=== PATIENT | female | born 1980 | race Caucasian/White ===

== ENCOUNTER → 2019-12-02 | Outpatient (CLI) | payer OTHER ==
--- NOTE | 2019-12-05 09:06 | RAD ---
DATE: 12/02/2019 EXAM: MAMMO BRIDGER SCREENING BILATERAL HISTORY: Routine screening COMPARISON: No prior exams are available. This exam is considered as a baseline exam. This study was interpreted with the benefit of Computerized Aided Detection (CAD). Breast Density: HETERO The breast parenchyma is heterogenously dense, which could reduce sensitivity of mammography. Breast parenchyma level C. FINDINGS: Right upper outer breast calcification cluster is noted 5 cm from the nipple. There are 2 asymmetries identified involving the right upper-outer breast approximately 5.8 cm from the nipple. At the left outer exaggerate the lateral view, there is a small asymmetry at the far posterior left breast which may represent a lymph node. IMPRESSION: Indeterminate findings bilaterally. BI-RADS CATEGORY: 0 INCOMPLETE: NEEDS ADDITIONAL IMAGING EVALUATION AND/OR PRIOR MAMMOGRAMS FOR COMPARISON. RECOMMENDED FOLLOW-UP: ADD ADDITIONAL IMAGING. Ultrasound imaging of the right outer breast asymmetry is is recommended. Spot magnification imaging of the right upper-outer breast calcifications is recommended in the CC and mediolateral projections. Medial lateral view of the right breast recommended. Ultrasound imaging of the left far posterior lateral aspect is recommended. Spot compression imaging of the far outer left exaggerated craniocaudal lateral asymmetry which probably represents a lymph node may be needed. PQRS compliance statement: Patient information was entered into a reminder system with a target due date for the next mammogram. Mammography is a sensitive method for finding small breast cancers, but it does not detect them all and is not a substitute for careful clinical examination. A negative mammogram does not negate a clinically suspicious finding and should not result in delay in biopsying a clinically suspicious abnormality. "Our facility is accredited by the [employer] Mammography [employer]."
== END | disposition home or self-care (01) ==
LOC: MAMMO 08:02
PROVIDERS: ATTEND Obstetrics & Gynecology
DX: Z12.31 Encounter for screening mammogram for malignant neoplasm of breast (principal); N64.89 Other specified disorders of breast
CPT/HCPCS: 77063; 77067

== ENCOUNTER → 2019-12-15 | Outpatient (CLI) | payer OTHER ==
--- NOTE | 2019-12-15 15:42 | RAD ---
EXAM: BILATERAL DIGITAL DIAGNOSTIC MAMMOGRAPHY. HISTORY: Indeterminate findings on mammographic screening. Additional imaging is requested. TECHNIQUE: Magnification images are obtained superolaterally on the right. Spot compression, ML and exaggerated lateral images are obtained on the left. COMPARISON: 12/02/2019. COMPOSITION: C. The breasts are heterogeneously dense, which may obscure small masses. FINDINGS: The calcifications of concern superolaterally on the right appear round and benign. There is no associated mass. The region of concern laterally on the left is consistent with a parenchymal density. There is no suspicious mammographic finding. Small lymph nodes laterally appear benign. BI-RADS CATEGORY 2: Benign. RECOMMENDATION: 1. Routine screening mammography in one year. If mammography demonstrates dense breast tissue (heterogenously dense or extremely dense, category C or D), which could hide abnormalities, and if other risk factors for breast cancer have been identified, supplemental screening tests that may be suggested by the ordering physician may be of benefit. Dense breast tissue, in and of itself, is a relatively common condition. Therefore, this information is not provided to cause undue concern, but rather to raise awareness and to promote discussion with the referring physician regarding the presence of other risk factors, in addition to dense breast tissue. The results of this mammography examination is provided to the patient and referring physician. The patient should contact their referring physician if any questions or concerns exist regarding this report. PQRS compliance statement - Patient information was entered into a reminder system with a target due date for the next mammogram. "Our facility is accredited by the [employer] Mammography [employer]." Electronically signed by: Irwin Payne MD (12/15/2019 3:39 PM) [facility]
== END | disposition home or self-care (01) ==
LOC: MAMMO 13:45
PROVIDERS: ATTEND Obstetrics & Gynecology
DX: R92.8 Other abnormal and inconclusive findings on diagnostic imaging of breast (principal)
CPT/HCPCS: 77066